=== PATIENT | male | born 1975 | race Hispanic/Latino ===

== ENCOUNTER 2024-06-22 23:15 | Emergency (ER) | payer OTHER ==
[~2024-06-22] VITALS: Ht 180.3 cm; Wt 158.8 kg
[~2024-06-22 23:15] MED LIST: AMOX TR-K CLV1 EAC2 PO; AMOXICILLIN500 MG PO; ASPIRIN81 MG PO; LISINOPRIL10 MG PO; METFORMIN HCL500 MG PO; OMEPRAZOLE40 MG PO; ZITHROMAX500 MG PO
[2024-06-22 23:55] VITALS: PULSE 70; RESP 20; TEMP 98.2; O2SAT 98
[2024-06-23] MEDS ORDERED: CYCLOBENZAPRINE10 MG PO (00:33)
[2024-06-23] MEDS ORDERED: KETOROLAC TROMETHAMINE 60 MG/2 ML VIAL ONE (00:36)
[2024-06-23] MEDS: KETOROLAC TROMETHAMINE 60 MG/2 ML VIAL IM ONE (00:37)
== END 2024-06-23 00:38 | disposition home or self-care (01) ==
LOC: ER 06-23 00:23
DX: S39.012A Strain of muscle, fascia and tendon of lower back, initial encounter (principal); Y93.A1 Activity, exercise machines primarily for cardiorespiratory conditioning; Y92.531 Health care provider office as the place of occurrence of the external cause; I10 Essential (primary) hypertension; E11.9 Type 2 diabetes mellitus without complications
CPT/HCPCS: 99283; J1885

== ENCOUNTER 2025-04-18 02:18 | Emergency (ER) | payer OTHER ==
[~2025-04-18] VITALS: Ht 180.3 cm; Wt 158.8 kg
[~2025-04-18 02:18] MED LIST changes: +CYCLOBENZAPRINE10 MG PO
[2025-04-18 02:22] VITALS: TEMP 97.8
[2025-04-18 02:44] LABS: BASOPHILS # (AUTO) 0.1 (0.0-0.1); BASOPHILS % 0.7 % (0.0-1.0); EOSINOPHILS # (AUTO) 0.1 (0.0-0.4); EOSINOPHILS % 1.2 % (0.0-6.0); HEMATOCRIT 46.9 % (38.2-49.6); LYMPHOCYTES # (AUTO) 3.4 (1.0-3.2); LYMPHOCYTES % 39.7 % (18.0-39.1); MEAN CORPUSCULAR HEMOGLOBIN 30.4 pg (28-32); MEAN CORPUSCULAR HGB CONC 34.1 g/dL (31-35); MEAN CORPUSCULAR VOLUME 89.2 fL (81-99); MONOCYTES # (AUTO) 0.7 (0.2-0.8); MONOCYTES % 7.5 % (4.4-11.3); NEUTROPHILS # (AUTO) 4.4 (2.1-6.9); NEUTROPHILS % 50.7 % (38.7-80.0); PLATELET COUNT 181 x10e3/uL (140-360); RED BLOOD COUNT 5.26 x10e6/uL (4.3-5.7); WHITE BLOOD COUNT 8.67 x10e3/uL (4.8-10.8)
[2025-04-18 03:11] VITALS: BP 161/101; PULSE 71
[2025-04-18 03:11] LABS: ALBUMIN 3.6 g/dL (3.5-5.0); ALBUMIN/GLOBULIN RATIO 0.9 (0.8-2.0); ANION GAP 15.4 mmol/L (8-16); BILIRUBIN,TOTAL 0.5 mg/dL (0.2-1.2); CALCIUM 9.2 mg/dL (8.4-10.2); CREATININE, SERUM 0.72 mg/dL (0.72-1.25); POTASSIUM 4.4 mmol/L (3.5-5.1); TOTAL PROTEIN 7.7 g/dL (6.5-8.1)
[2025-04-18] MEDS: METOPROLOL TARTRATE INJ 1 MG/ML VIAL IV ONE (03:11)
[2025-04-18 03:19] LABS: INR 0.95; PROTHROMBIN TIME 13.5 seconds (11.9-14.5)
[2025-04-18 03:23] LABS: PARTIAL THROMBOPLASTIN TIME 27.5 seconds (23.8-35.5)
[2025-04-18 04:03] VITALS: PULSE 65; RESP 20; O2SAT 95
[2025-04-18 04:09] VITALS: TEMP 98
== END 2025-04-18 04:13 | disposition other institution (70) ==
LOC: ER 02:25
DX: R51.9 Headache, unspecified (principal); I62.00 Nontraumatic subdural hemorrhage, unspecified; I10 Essential (primary) hypertension; E11.65 Type 2 diabetes mellitus with hyperglycemia; K21.9 Gastro-esophageal reflux disease without esophagitis; R94.31 Abnormal electrocardiogram [ECG] [EKG]
CPT/HCPCS: 36415; 70450; 80053; 84484; 85025; 85610; 85730; 93005; 99284

== ENCOUNTER 2025-06-06 20:19 | Emergency (ER) | payer OTHER ==
[~2025-06-06] VITALS: Ht 180.3 cm; Wt 145.6 kg
[2025-06-06 20:56] LABS: BASOPHILS % 0.5 % (0.0-1.0); EOSINOPHILS % 0.8 % (0.0-6.0); LYMPHOCYTES % 33.0 % (18.0-39.1); MONOCYTES % 8.8 % (4.4-11.3); NEUTROPHILS % 56.7 % (38.7-80.0); RED CELL DISTRIBUTION WIDTH 12.8 % (11.7-14.4)
[2025-06-06 21:11] LABS: EST GLOMERULAR FILTRATION RATE 109.0 ML/MIN (>=60)
[2025-06-06] MEDS: LIDOCAINE VISC 2% SOLN 15 ML UDC PO ONE (22:06)
[2025-06-06] MEDS: BELLADONNA ALK/PHENOBARBITAL 5 ML UDC PO STA (22:06)
[2025-06-06] MEDS: MAGNESIUM/ALUMINUM/SIMETHICONE 30 ML UDC PO ONE (22:07)
[2025-06-06] MEDS: ACETAMINOPHEN 325 MG TAB PO ONE (22:07)
[2025-06-06] MEDS ORDERED: CARAFATE1 GM PO (23:52)
[2025-06-07] VITALS: PULSE 55; RESP 16; TEMP 98.6; O2SAT 95
== END 2025-06-07 00:20 | disposition home or self-care (01) ==
LOC: ER 20:46
DX: R10.13 Epigastric pain (principal); I10 Essential (primary) hypertension; E11.9 Type 2 diabetes mellitus without complications; K21.9 Gastro-esophageal reflux disease without esophagitis; F41.9 Anxiety disorder, unspecified; E66.9 Obesity, unspecified
CPT/HCPCS: 36415; 71045; 80053; 83690; 84484; 85025; 93005; 99284